=== PATIENT | male | born 1950 | race Caucasian/White ===

== ENCOUNTER → 2018-11-23 | Outpatient (CLI) | payer BC, OTHER ==
[~2018-11-23] MED LIST: ASPIRIN81 M1 PO; FLUOXETINE HCL10 MG PO; LISINOPRIL10 MG PO
--- NOTE | ~2018-11-23 | PF ---
[place], [place] PULMONARY FUNCTION TEST NAME: JAYLA MALDONADO UNIT #: [id number] ROOM: DOCTOR: KOLE CHARLES MD,ALVINA BIRTHDATE: [birth year] DOS: 11/23/2018 Testing was ordered by Dr. Yoseph Meneses. The testing was performed on the date of 11/23/2018. HISTORY: The patient history was reported as a 68-year-old male, height of 70 inches, weight of 235 pounds, BMI 33.7. The patient was reported as tobacco use patient of 1 pack of cigarettes per day for 45 years. Symptoms of frequent wheezing was reported. SPIROMETRY: The FVC of 4.40 liters, 81% predicted value. FEV1 of 2.22 liters at 66% predicted value. The ratio of FEV1/FVC 60%. Postbronchodilator, there is significant improvement. Post-bronchodilator, flow volume loop was noted with finding consistent with obstructive lung disease. The lung diffusion recorded 69%. Airway resistance and passive conductance could not be done. FINAL IMPRESSION: Current test was noted finding consistent with moderate chronic obstructive pulmonary disease diagnosis. ALVINA SHARIF MD CM:PFREPORT:PULMONARY FUNCTION TEST [id number] ALVINA CHARLES MD
== END | disposition home or self-care (01) ==
LOC: CP 08:43
DX: J44.9 Chronic obstructive pulmonary disease, unspecified (principal); Z72.0 Tobacco use

== ENCOUNTER → 2022-12-30 | Outpatient (CLI) | payer BC, OTHER | END | disposition home or self-care (01) | LOC: RAD 10:12 | PROVIDERS: ATTEND Nurse Practitioner Family | DX: R05.1 Acute cough (principal) ==